=== PATIENT | female | born 1960 | race Hispanic/Latino ===

== ENCOUNTER 2018-05-24 15:47 | Emergency (ER) | payer MEDICARE ==
[2018-05-24 17:04] VITALS: BP 222/122
--- NOTE | 2018-05-24 18:01 | XRay Report ---
FINAL REPORT EXAM: XR CHEST ROUTINE 2V HISTORY: trauma, pain TECHNIQUE: Two view chest PA and lateral PRIORS: None. FINDINGS: Cardiac and mediastinal contours are unremarkable. No focal pulmonary infiltrate is identified. No pleural fluid collection seen. Pulmonary vasculature is unremarkable. IMPRESSION: Negative two-view chest
== END 2018-05-24 18:30 | disposition left against medical advice (07) ==
LOC: ED 15:47
DX: R07.81 Pleurodynia (principal); Z53.21 Procedure and treatment not carried out due to patient leaving prior to being seen by health care provider
CPT/HCPCS: 71046

== ENCOUNTER 2021-02-08 11:44 | Emergency (ER) | payer MEDICARE ==
[2021-02-08] MEDS ORDERED: ASPIRIN 325 MG TAB PO ONE (12:03)
[2021-02-08 12:39] LABS: Basophils # (Auto) 0.1 K/mm3 (0.0-0.1); Eosinophils # (Auto) 0.1 K/mm3 (0.0-0.4); Eosinophils % (Auto) 2.5 % (0.0-4.3); Hematocrit 44.4 % (30.3-42.9); Hemoglobin 15.5 gm/dl (10.1-14.3); Lymphocytes # (Auto) 1.9 K/mm3 (1.2-5.4); Lymphocytes % (Auto) 33.9 % (13.4-35.0); Mean Corpuscular HGB Conc 35 % (30-34); Mean Corpuscular Volume 90 fl (79-97); Monocytes # (Auto) 0.3 K/mm3 (0.0-0.8); Monocytes % (Auto) 5.5 % (0.0-7.3); Platelet Count 161 K/mm3 (140-440); Red Blood Count 4.94 M/mm3 (3.65-5.03); Red Cell Distribution Width 13.1 % (13.2-15.2)
--- NOTE | 2021-02-08 12:41 | Emergency Department Report ---
ED Chest Pain HPI - General Chief Complaint: Chest Pain Stated Complaint: CHEST PAIN/BLOOD SUGAR HIGH Time Seen by Provider: 02/08/21 12:37 Source: patient Mode of arrival: Ambulatory Limitations: No Limitations - History of Present Illness Initial Comments: This is a 60-year-old diabetic female with a history of chronic pain principally affecting her back. She states that she has been going to her primary care physician last yesterday for right upper quadrant pain (liver pain). She states that her primary care doctor informed her that she should have a CT or an ultrasound. 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 She admits that she has had this right upper quadrant pain for some days if not weeks. Sometimes it radiates to the right flank. Sometimes there is accompanying pressure in the substernal region. She denies any pleuritic pain cough or dyspnea. She likewise has had no leg pain or swelling. Patient is a poor historian. However she is able to tell me that she has had a CT and an ultrasound of her liver in the past. She states it showed a "lesion that might be a gallstone". She states that she had a cholecystectomy when she was 16 years of age however. She also states that within the last 10 years she had a cardiac catheterization that revealed no need for angioplasty or stenting. Upon further questioning, she seems to be stating that she has a history of chronic hepatitis C. She states that she was going to be sent somewhere for consideration for testing but that never happened. The patient states she went off her Metformin recently and having her glipizide increased. She used to be on insulin when she was first diagnosed with diabetes but not for some time. Her glucose was found to be over 500 today. Severity scale (0 -10): 6 - Related Data Home Medications Medication Instructions Recorded Confirmed Last Taken hydrALAZINE [Apresoline TAB] 100 mg PO Q8H 11/14/15 02/24/16 01/28/16 Metoprolol [Lopressor TAB] 50 mg PO BID 01/28/16 02/24/16 01/28/16 ALPRAZolam [Xanax TAB] 1 mg PO TID PRN 02/24/16 02/24/16 02/24/16 Clonidine HCl [Kapvay] 0.1 mg PO TID PRN 02/24/16 02/24/16 02/24/16 Oxycodone HCl/Acetaminophen 1 each PO Q6HR PRN 02/24/16 02/24/16 02/24/16 [Percocet 10/325 mg] Tizanidine HCl [tiZANidine] 4 mg PO TID 02/24/16 02/24/16 Unknown Previous Rx's Medication Instructions Recorded Last Taken Type HYDROcodone/APAP 5-325 [[place] 1 each PO Q12H PRN #10 tablet 02/25/16 Unknown Rx 5-325 mg TAB] Nicotine [Habitrol] 14 mg TD DAILY #30 patch 02/25/16 Unknown Rx Insulin Regular, Human [HumuLIN R] 1 units SQ BID #1 bottle 02/08/21 Unknown Rx traMADoL [Ultram 50 MG tab] 50 mg PO Q8HR PRN #14 tablet 02/08/21 Unknown Rx Allergies Allergy/AdvReac Type Severity Reaction Status Date / Time CINDY Inhibitors AdvReac Severe Angioedema Verified 05/17/15 11:57 Heart Score - HEART Score History: Slightly suspicious EKG: Non-specific Age: 45-65 Risk factors: 1-2 risk factors Troponin: < normal limit HEART Score: 3 - EKG Read Time Time EKG Completed: 16:00 EKG Read Time: 16:05 - Critical Actions Critical Actions: 0-3 pts:0.9-1.7%risk of adverse cardiac event.Candidate for discharge ED Review of Systems ROS: Stated complaint: CHEST PAIN/BLOOD SUGAR HIGH Other details as noted in HPI Constitutional: denies: chills, fever Eyes: denies: eye pain, eye discharge, vision change ENT: denies: ear pain, throat pain Respiratory: denies: cough, shortness of breath Cardiovascular: chest pain. denies: palpitations Endocrine: no symptoms reported Gastrointestinal: abdominal pain. denies: nausea, vomiting, diarrhea, melena, hematochezia Genitourinary: denies: urgency, dysuria Musculoskeletal: back pain (Chronic and some radiation from the right upper quadrant). denies: arthralgia Skin: denies: rash, lesions Neurological: denies: headache, weakness, paresthesias Psychiatric: denies: anxiety, depression Hematological/Lymphatic: denies: easy bleeding, easy bruising ED Past Medical Hx - Past Medical History Previous Medical History?: Yes Hx Hypertension: Yes Hx CVA: Yes (x 3) Hx Congestive Heart Failure: No Hx Diabetes: Yes (insulin dependant diabetes no longer takes insulin) Hx Asthma: No Hx COPD: No Hx Tuberculosis: No Hx HIV: No Additional medical history: Back problems, chronic back and neck pain. kidney failure. liver failure - Surgical History Hx Cholecystectomy: Yes (Age 19) Hx Appendectomy: Yes (Age 20) Additional Surgical History: Multiple neck surgeries. Hysterectomy. Tummy Tuck. Breast Implants - Social History Smoking Status: Current Every Day Smoker Substance Use Type: None - Medications Home Medications: Home Medications Medication Instructions Recorded Confirmed Last Taken Type hydrALAZINE [Apresoline TAB] 100 mg PO Q8H 11/14/15 02/24/16 01/28/16 History Metoprolol [Lopressor TAB] 50 mg PO BID 01/28/16 02/24/16 01/28/16 History ALPRAZolam [Xanax TAB] 1 mg PO TID PRN 02/24/16 02/24/16 02/24/16 History Clonidine HCl [Kapvay] 0.1 mg PO TID PRN 02/24/16 02/24/16 02/24/16 History Oxycodone HCl/Acetaminophen 1 each PO Q6HR PRN 02/24/16 02/24/16 02/24/16 History [Percocet 10/325 mg] Tizanidine HCl [tiZANidine] 4 mg PO TID 02/24/16 02/24/16 Unknown History HYDROcodone/APAP 5-325 [[place] 1 each PO Q12H PRN #10 tablet 02/25/16 Unknown Rx 5-325 mg TAB] Nicotine [Habitrol] 14 mg TD DAILY #30 patch 02/25/16 Unknown Rx Insulin Regular, Human [HumuLIN R] 1 units SQ BID #1 bottle 02/08/21 Unknown Rx traMADoL [Ultram 50 MG tab] 50 mg PO Q8HR PRN #14 tablet 02/08/21 Unknown Rx ED Physical Exam - General Limitations: No Limitations General appearance: alert, in no apparent distress - Head Head exam: Present: atraumatic, normocephalic - Eye Eye exam: Present: normal appearance. Absent: scleral icterus - ENT ENT exam: Present: mucous membranes moist - Neck Neck exam: Present: normal inspection - Respiratory Respiratory exam: Present: normal lung sounds bilaterally. Absent: respiratory distress - Cardiovascular Cardiovascular Exam: Present: regular rate, normal rhythm. Absent: systolic murmur, diastolic murmur, rubs, gallop - GI/Abdominal GI/Abdominal exam: Present: soft, tenderness (Right upper quadrant without guarding or rebound), normal bowel sounds, organomegaly (Possibly hepatomegaly). Absent: distended, guarding, rebound, rigid, mass, bruit, pulsatile mass, hernia - Extremities Exam Extremities exam: Present: normal inspection - Back Exam Back exam: Present: normal inspection. Absent: CVA tenderness (R), CVA tenderness (L), muscle spasm, paraspinal tenderness, vertebral tenderness - Neurological Exam Neurological exam: Present: alert, oriented X3, CN II-XII intact. Absent: motor sensory deficit - Psychiatric Psychiatric exam: Present: normal affect, normal mood - Skin Skin exam: Present: warm, dry, intact, normal color. Absent: rash ED Course Vital Signs 02/08/21 02/08/21 02/08/21 11:47 12:59 14:01 Temperature 98.1 F Pulse Rate 69 75 76 Respiratory 18 18 15 Rate Blood Pressure 136/82 Blood Pressure 117/72 132/57 [Right] O2 Sat by Pulse 96 95 96 Oximetry 02/08/21 02/08/21 14:31 15:01 Temperature Pulse Rate 76 76 Respiratory 11 L 9 L Rate Blood Pressure 119/53 103/53 Blood Pressure [Right] O2 Sat by Pulse 95 96 Oximetry JULIEN score - Julien Score Age > 65: (0) No Aspirin use within the Past 7 Days: (0) No 3 or more CAD Risk Factors: (0) No 2 or more Angina events in past 24 hrs: (0) No Known CAD with more than 50% Stenosis: (0) No Elevated Cardiac Markers: (0) No ST Deviation Greater than 0.5mm: (0) No JULIEN Score: 0 ED Medical Decision Making - Lab Data Result diagrams: 02/08/21 12:21 02/08/21 12:21 Laboratory Results - last 24 hr 02/08/21 02/08/21 02/08/21 11:50 12:21 12:21 WBC 5.7 RBC 4.94 Hgb 15.5 H Hct 44.4 H MCV 90 MCH 31 MCHC 35 H RDW 13.1 L Plt Count 161 Lymph % (Auto) 33.9 Smyth % (Auto) 5.5 Eos % (Auto) 2.5 Baso % (Auto) 1.0 Lymph # (Auto) 1.9 Smyth # (Auto) 0.3 Eos # (Auto) 0.1 Baso # (Auto) 0.1 Seg Neutrophils % 57.1 Seg Neutrophils # 3.2 PT INR APTT VBG pH Sodium 128 L Potassium 4.5 Chloride 91.3 L Carbon Dioxide 24 Anion Gap 17 BUN 15 Creatinine 0.8 Estimated GFR > 60 BUN/Creatinine Ratio 19 Glucose 546 H* POC Glucose 521 H Calcium 9.7 Magnesium Total Bilirubin 0.60 AST 152 H ALT 158 H Alkaline Phosphatase 121 Total Creatine Kinase CK-MB (CK-2) CK-MB (CK-2) Rel Index Troponin T < 0.010 NT-Pro-B Natriuret Pep Total Protein 7.8 Albumin 4.3 Albumin/Globulin Ratio 1.2 Lipase 02/08/21 02/08/21 02/08/21 13:01 13:01 13:01 WBC RBC Hgb Hct MCV MCH MCHC RDW Plt Count Lymph % (Auto) Smyth % (Auto) Eos % (Auto) Baso % (Auto) Lymph # (Auto) Smyth # (Auto) Eos # (Auto) Baso # (Auto) Seg Neutrophils % Seg Neutrophils # PT 13.6 INR 0.99 APTT 26.9 VBG pH 7.403 Sodium Potassium Chloride Carbon Dioxide Anion Gap BUN Creatinine Estimated GFR BUN/Creatinine Ratio Glucose POC Glucose Calcium Magnesium 1.80 Total Bilirubin AST ALT Alkaline Phosphatase Total Creatine Kinase 53 CK-MB (CK-2) 1.3 CK-MB (CK-2) Rel Index 2.4 Troponin T NT-Pro-B Natriuret Pep 57.99 Total Protein Albumin Albumin/Globulin Ratio Lipase 02/08/21 13:01 WBC RBC Hgb Hct MCV MCH MCHC RDW Plt Count Lymph % (Auto) Smyth % (Auto) Eos % (Auto) Baso % (Auto) Lymph # (Auto) Smyth # (Auto) Eos # (Auto) Baso # (Auto) Seg Neutrophils % Seg Neutrophils # PT INR APTT VBG pH Sodium Potassium Chloride Carbon Dioxide Anion Gap BUN Creatinine Estimated GFR BUN/Creatinine Ratio Glucose POC Glucose Calcium Magnesium Total Bilirubin AST ALT Alkaline Phosphatase Total Creatine Kinase CK-MB (CK-2) CK-MB (CK-2) Rel Index Troponin T NT-Pro-B Natriuret Pep Total Protein Albumin Albumin/Globulin Ratio Lipase 52 - EKG Data -: EKG Interpreted by Me EKG shows normal: sinus rhythm, intervals, ST-T waves Rate: normal - EKG Data When compared to previous EKG there are: no significant change (Slightly more leftward back axis) Interpretation: other (Bifascicular block: Left anterior fascicular block, right bundle branch block) - Radiology Data interpreted by me: FINDINGS: Lungs/bones: Lung bases are clear. Visualized breast implants demonstrate intact implant on the right and what appears to be collapsed implant on the left. There are degenerative changes throughout the spine and pelvis with no acute osseous abnormality identified. Either posttraumatic or enthesopathic changes seen over the right iliac crest. Abdomen/pelvis: The gallbladder is surgically absent. The liver has a lobulated appearance with no focal mass on this limited noncontrast exam. The spleen is enlarged. There are with appear to be a few small varices seen near the stuart and in the region of the gastrohepatic ligament. No ascites identified. The pancreas, adrenals, and proximal GI tract appear unremarkable. There is nonobstructive nephrolithiasis with 3 mm stone in the upper pole the right kidney. Kidneys otherwise appear unremarkable. Urinary bladder is mildly distended but otherwise unremarkable. Uterus is surgically absent. No pelvic free fluid. No acute colonic abnormality identified. IMPRESSION: 1. No acute abnormality identified. 2. Cirrhotic configuration of the liver with or suggestion of portal venous hypertension including splenomegaly and small varices. No ascites. 3. Additional incidental findings as above. Signer Name: Godwin Aviles MD Critical care attestation.: If time is entered above; I have spent that time in minutes in the direct care of this critically ill patient, excluding procedure time. ED Disposition Clinical Impression: Right upper quadrant pain, Atypical chest pain Cirrhosis Qualifiers: Hepatic cirrhosis type: other cirrhosis Qualified Code(s): K74.69 - Other cirrhosis of liver Hyperglycemia due to type 2 diabetes mellitus Qualifiers: Diabetes mellitus chcf insulin use: without terminal operations supervisor use Qualified Code(s): E11.65 - Type 2 diabetes mellitus with hyperglycemia Disposition: DC- TO HOME OR SELFCARE Is pt being admited?: No Does the pt Need Aspirin: No Condition: Stable Instructions: Insulin Treatment for Diabetes Mellitus, Nonspecific Chest Pain, Adult, Nonspecific Chest Pain, Adult, [id number], Diabetes Mellitus Type 2 in Adults (ED) Additional Instructions: Return to the emergency department any acute change or problem. I would recommend follow-up with the GI specialist for your cirrhosis. See referral. I would recommend that you go to sliding scale insulin for your diabetes. Follow-up with primary care or [facility]. Rx insulin, tramadol as needed for pain. Prescriptions: Insulin Regular, Human [HumuLIN R] 1 units SQ BID #1 bottle traMADoL [Ultram 50 MG tab] 50 mg PO Q8HR PRN #14 tablet PRN Reason: Pain Referrals: [facility] [Provider Group] - 2-3 Days Time of Disposition: 16:23
[2021-02-08] MEDS ORDERED: MORPHINE 2 MG/1 ML INJ IV ONE (12:59)
[2021-02-08] MEDS ORDERED: ONDANSETRON 4 MG/2 ML INJ IV ONE (12:59)
[2021-02-08 13:05] LABS: Alanine Aminotransferase 158 units/L (7-56); Albumin 4.3 g/dL (3.9-5); BUN/Creatinine Ratio 19; Blood Urea Nitrogen 15 mg/dL (7-17); Calcium 9.7 mg/dL (8.4-10.2); Hemolysis Index 5
[2021-02-08 13:31] LABS: INR 0.99 (0.87-1.13)
[2021-02-08 13:32] LABS: Partial Thromboplastin Time 26.9 Sec. (24.2-36.6)
--- NOTE | 2021-02-08 13:34 | XRay Report ---
CHEST 2 VIEWS INDICATION / CLINICAL INFORMATION: cp. COMPARISON: 05/24/2018 FINDINGS: SUPPORT DEVICES: None. HEART / MEDIASTINUM: Stable. LUNGS / PLEURA: No significant pulmonary or pleural abnormality. No pneumothorax. ADDITIONAL FINDINGS: Post surgical findings again noted of the cervical spine. IMPRESSION: 1. No acute findings. No significant interval change. Signer Name: Alec Ibarra MD Signed: 02/08/2021 1:30 PM Workstation Name: [id number]
[2021-02-08 13:40] LABS: Creatine Kinase MB 1.3 ng/mL (0.0-4.0)
--- NOTE | 2021-02-08 14:06 | Cat Scan Report ---
CT ABDOMEN AND PELVIS WITHOUT CONTRAST HISTORY: abd pain/ RUQ. COMPARISON: CT abdomen/pelvis from 10/28/2015 TECHNIQUE: CT images of the abdomen and pelvis were obtained without administration of intravenous co ntrast. All CT scans at this location are performed using CT dose reduction for ALARA by means of au tomated exposure control. FINDINGS: Lungs/bones: Lung bases are clear. Visualized breast implants demonstrate intact implant on the righ t and what appears to be collapsed implant on the left. There are degenerative changes throughout the spine and pelvis with no acute osseous abnormality identified. Either posttraumatic or enthesopathic changes seen over the right iliac crest. Abdomen/pelvis: The gallbladder is surgically absent. The liver has a lobulated appearance with no focal mass on this limited noncontrast exam. The spleen is enlarged. There are with appear to be a few small varices seen near the stuart and in the region of the gastrohepatic ligament. No ascites identified. The pancreas, adrenals, and proximal GI tract appear unremarkable. There is nonobstructive nephrolith iasis with 3 mm stone in the upper pole the right kidney. Kidneys otherwise appear unremarkable. Urinary bladder is mildly distended but otherwise unremarkable. Uterus is surgically absent. No pelvi c free fluid. No acute colonic abnormality identified. IMPRESSION: 1. No acute abnormality identified. 2. Cirrhotic configuration of the liver with or suggestion of portal venous hypertension including sp lenomegaly and small varices. No ascites. 3. Additional incidental findings as above. Signer Name: Godwin Aviles MD Signed: 02/08/2021 2:02 PM Workstation Name: [id number]
[2021-02-08] MEDS ORDERED: SODIUM CHLORIDE 0.9% 1000 ML 1,000 ML IV ONE (14:28)
[2021-02-08] MEDS ORDERED: INSULIN REGULAR, HUMAN 100 UNITS/1 ML IV ONE (14:28)
[2021-02-08 17:41] VITALS: BP 103/53
--- NOTE | 2021-02-17 10:42 | Electrocardiograph Report ---
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
== END 2021-02-08 17:42 | disposition home or self-care (01) ==
LOC: ED 11:44
DX: K74.60 Unspecified cirrhosis of liver (principal); E11.65 Type 2 diabetes mellitus with hyperglycemia; R10.11 Right upper quadrant pain; R07.89 Other chest pain; I10 Essential (primary) hypertension; F17.200 Nicotine dependence, unspecified, uncomplicated; Z86.73 Personal history of transient ischemic attack (TIA), and cerebral infarction without residual deficits; Z98.890 Other specified postprocedural states; Z88.8 Allergy status to other drugs, medicaments and biological substances; Z79.899 Other long term (current) drug therapy
CPT/HCPCS: 36415; 71046; 74176; 80053; 82140; 82550; 82553; 82805; 82962; 83690; 83735; 83880; 84484; 85025; 85610; 85730; 93005; 96361; 96374; 96375; 99285; J2270; J2405; J7030; J1815